=== PATIENT | female | born 1960 | race Caucasian/White ===

== ENCOUNTER 2017-09-03 02:53 | Emergency (ER) | payer BC ==
[2017-09-03] MEDS ORDERED: Meclizine 25 MG Tab PO ONE (03:46)
[2017-09-03] MEDS ORDERED: Ondansetron 4 MG Tab.DIS PO ONE (03:50)
--- NOTE | 2017-09-03 03:51 | EDM.PDOC ---
ED HPI GENERAL MEDICAL PROBLEM - General Chief Complaint: General Stated Complaint: DIZZINESS Time Seen by Provider: 09/03/17 03:46 Source of Information: Reports: Patient History Limitations: Reports: No Limitations - History of Present Illness INITIAL COMMENTS - FREE TEXT/NARRATIVE: since yesterday pt has had some episodes of vertigo that come and go. She has had slight nausea. She has not had inner ear problems in the past. She does not have a severe headache. Onset: Other ( started yesterday when she was traveling to [place]. ) Duration: Hour(s): Location: Reports: Face Associated Symptoms: Reports: Nausea/Vomiting Headache Pain Score (Numeric/FACES): 3 - Related Data Allergies Allergy/AdvReac Type Severity Reaction Status Date / Time No Known Allergies Allergy Verified 09/03/17 03:12 Home Meds: Home Meds Ergocalciferol (Vitamin D2) [Vitamin D] 400 unit PO DAILY 07/05/13 [History] Lisinopril/Hydrochlorothiazide [Lisinopril-Hctz 10-12.5 mg Tab] 1 tab PO DAILY 07/05/13 [History] Multivitamin with Minerals [Multiple Vitamin] 1 tab PO DAILY 07/05/13 [History] Simvastatin [Zocor] 10 mg PO BEDTIME 09/03/17 [History] Past Medical History HEENT History: Reports: Impaired Vision Cardiovascular History: Reports: High Cholesterol, 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 ) Respiratory: Reports: No Symptoms Cardiovascular: Reports: No Symptoms Endocrine: Reports: No Symptoms GI/Abdominal: Reports: No Symptoms, Nausea : Reports: No Symptoms Musculoskeletal: Reports: No Symptoms Skin: Reports: No Symptoms Neurological: Reports: Dizziness Psychiatric: Reports: No Symptoms ED EXAM, GENERAL - Physical Exam Exam: See Below Free Text/Narrative:: pt has the sensation that the room is moving and she is mildly nauseated. She has some tenderness by the left ear. Exam Limited By: No Limitations General Appearance: Alert, Anxious, Mild Distress, Other (pupils are equal and reactive. ) Ears: Other (pt does have fluid behind the left drum. ) Nose: Normal Inspection Throat/Mouth: Other (pt feels like she has drainage down the back of the throat. ) Head: Atraumatic Neck: Normal Inspection Respiratory/Chest: No Respiratory Distress Cardiovascular: Regular Rate, Rhythm GI/Abdominal: Soft, Non-Tender (Female) Exam: Deferred Rectal (Female) Exam: Deferred Back Exam: Normal Inspection Extremities: Normal Inspection Neurological: Alert, Oriented, Normal Cognition Course - Vital Signs Last Recorded V/S: Last Vital Signs Temp 35.9 C 09/03/17 03:22 Pulse 105 H 09/03/17 03:22 Resp 16 09/03/17 03:22 BP 177/95 H 09/03/17 03:22 Pulse Ox 98 09/03/17 03:22 - Orders/Labs/Meds Orders: Active Orders 24 hr Category Date Time Status Meclizine [Antivert] Med 09/03/17 03:46 Once 25 mg PO ONETIME ONE - Re-Assessments/Exams Free Text/Narrative Re-Assessment/Exam: 09/03/17 03:52 pt was given subling zoforan and antivert. Departure - Departure Time of Disposition: 03:53 Disposition: Home, Self-Care 01 Condition: Fair Clinical Impression: Inner ear dysfunction, Serous otitis media - Discharge Information Referrals: Rekha Kaur PA [Primary Care Provider] - Care Plan Goals: low activity, antivert 25 po tid for the next 2 days and then prn, amoxicillin 500mg tid. - My Orders Last 24 Hours: My Active Orders 09/03/17 03:46 Meclizine [Antivert] 25 mg PO ONETIME ONE - Assessment/Plan Last 24 Hours: My Active Orders 09/03/17 03:46 Meclizine [Antivert] 25 mg PO ONETIME ONE
== END 2017-09-03 04:25 | disposition home or self-care (01) ==
LOC: JP.ED 02:53
DX: H65.92 Unspecified nonsuppurative otitis media, left ear (principal); I10 Essential (primary) hypertension; E78.00 Pure hypercholesterolemia, unspecified; F32.9 Major depressive disorder, single episode, unspecified; Z79.899 Other long term (current) drug therapy
CPT/HCPCS: 99284; A9270

== ENCOUNTER 2019-03-23 00:39 | Emergency (ER) | payer BC ==
[2019-03-23] MEDS ORDERED: LORazepam 0.5 MG Tab PO ONE (01:27)
--- NOTE | 2019-03-23 01:32 | EDM.PDOC ---
ED HPI GENERAL MEDICAL PROBLEM - General Chief Complaint: General Stated Complaint: BACK PAIN,NUMB ARMS Time Seen by Provider: 03/23/19 01:27 Source of Information: Reports: Patient History Limitations: Reports: No Limitations - History of Present Illness INITIAL COMMENTS - FREE TEXT/NARRATIVE: pt arrived because each nite she is having like a panic attack and she feels like she can not breath. She took a over the counter decongestant tonight and she woke up very panicy and she was not able to breath. Onset: Other ( started several days ago. ) Duration: Hour(s): Location: Reports: Face, Chest, Other ( sinus congestion and sob. ) Associated Symptoms: Reports: Shortness of Breath below left shoulder blade Pain Score (Numeric/FACES): 3 - Related Data Allergies Allergy/AdvReac Type Severity Reaction Status Date / Time No Known Allergies Allergy Verified 03/23/19 00:59 Home Meds: Home Meds Ergocalciferol (Vitamin D2) [Vitamin D] 400 unit PO DAILY 07/05/13 [History] Lisinopril/Hydrochlorothiazide [Lisinopril-Hctz 10-12.5 mg Tab] 1 tab PO DAILY 07/05/13 [History] Multivitamin with Minerals [Multiple Vitamin] 1 tab PO DAILY 07/05/13 [History] Simvastatin [Zocor] 10 mg PO BEDTIME 09/03/17 [History] Fluticasone Propionate [Flonase] 2 spray NIRALI DAILY 03/23/19 [History] Montelukast Sodium 10 mg PO BEDTIME 03/23/19 [History] Past Medical History HEENT History: Reports: Impaired Vision Cardiovascular History: Reports: High Cholesterol, Hypertension [employer] MANAGER History: Reports: Neurological History: Reports: Other (See Below) Other Neuro History: Easton's Palsy Psychiatric History: Reports: Depression Dermatologic History: Reports: Eczema, Psoriasis - Infectious Disease History Infectious Disease History: Reports: Shingles Social & Family History - Tobacco Use Smoking Status *Q: Never Smoker Second Hand Smoke Exposure: No - Caffeine Use Caffeine Use: Reports: None - Recreational Drug Use Recreational Drug Use: No ED ROS GENERAL - Review of Systems Review Of Systems: See Below Constitutional: Reports: No Symptoms HEENT: Reports: No Symptoms Respiratory: Reports: Shortness of Breath, Other (pt gets tingly in her arms. ) Cardiovascular: Reports: Other (pain by the left shoulder blade. ) Endocrine: Reports: No Symptoms GI/Abdominal: Reports: No Symptoms : Reports: No Symptoms Musculoskeletal: Reports: No Symptoms Skin: Reports: No Symptoms ED EXAM, GENERAL - Physical Exam Exam: See Below Free Text/Narrative:: pt arrived with a history of waking up and not feeling cmfortable with the breathing. Exam Limited By: No Limitations General Appearance: Alert, Anxious, Other (pt is having episodes of sob. ) Ears: Normal TMs Nose: Normal Inspection Throat/Mouth: Normal Inspection Head: Atraumatic Neck: Normal Inspection Respiratory/Chest: No Respiratory Distress, Other ( chest does sound clear. ) Cardiovascular: Regular Rate, Rhythm GI/Abdominal: Soft, Non-Tender (Female) Exam: Deferred Rectal (Female) Exam: Deferred Back Exam: Normal Inspection Extremities: Normal Inspection Neurological: Alert, Oriented, Normal Cognition Psychiatric: Normal Affect Course - Vital Signs Last Recorded V/S: Last Vital Signs Temp 36.1 C 03/23/19 01:04 Pulse 85 03/23/19 01:05 Resp 14 03/23/19 01:05 BP 145/90 H 03/23/19 01:05 Pulse Ox 100 03/23/19 01:05 - Orders/Labs/Meds Labs: Laboratory Tests 03/23/19 03/23/19 03/23/19 Range/Units 01:30 01:30 01:30 WBC 8.1 (4.5-11.0) K/uL RBC 4.40 (3.30-5.50) M/uL Hgb 12.6 (12.0-15.0) g/dL Hct 39.2 (36.0-48.0) % MCV 89 (80-98) fL MCH 29 (27-31) pg MCHC 32 (32-36) % Plt Count 257 (150-400) K/uL Neut % (Auto) 59 (36-66) % Lymph % (Auto) 28 (24-44) % [place] % (Auto) 11 H (2-6) % Eos % (Auto) 1 L (2-4) % Baso % (Auto) 1 (0-1) % Sodium 141 (140-148) mmol/L Potassium 3.5 L (3.6-5.2) mmol/L Chloride 104 (100-108) mmol/L Carbon Dioxide 25 (21-32) mmol/L Anion Gap 15.5 H (5.0-14.0) mmol/L BUN 12 (7-18) mg/dL Creatinine 0.7 (0.6-1.0) mg/dL Est Cr Clr Drug Dosing 85.64 mL/min Estimated GFR (MDRD) > 60 (>60) Glucose 90 (74-106) mg/dL Calcium 8.6 (8.5-10.1) mg/dL Total Bilirubin 0.3 (0.2-1.0) mg/dL AST 19 (15-37) U/L ALT 25 (12-78) U/L Alkaline Phosphatase 82 (46-116) U/L NT-Pro-B Natriuret Pep (5-125) pg/mL Total Protein 7.9 (6.4-8.2) g/dL Albumin 4.1 (3.4-5.0) g/dL Globulin 3.8 H (2.3-3.5) g/dL Albumin/Globulin Ratio 1.1 L (1.2-2.2) TSH, Ultra Sensitive 4.087 H (0.358-3.740) uIU/mL Urine Color (YELLOW) Urine Appearance (CLEAR) Urine pH (5.0-8.0) Ur Specific [place] (1.008-1.030) Urine Protein (NEGATIVE) mg/dL Urine Glucose (UA) (NEGATIVE) mg/dL Urine Ketones (NEGATIVE) mg/dL Urine Occult Blood (NEGATIVE) Urine Nitrite (NEGATIVE) Urine Bilirubin (NEGATIVE) Urine Urobilinogen (0.2-1.0) EU/dL Ur Leukocyte Esterase (NEGATIVE) Urine RBC (0-5) Urine WBC (0-5) Ur Epithelial Cells Amorphous Sediment Urine Bacteria Urine Mucus 03/23/19 03/23/19 Range/Units 01:30 01:39 WBC (4.5-11.0) K/uL RBC (3.30-5.50) M/uL Hgb (12.0-15.0) g/dL Hct (36.0-48.0) % MCV (80-98) fL MCH (27-31) pg MCHC (32-36) % Plt Count (150-400) K/uL Neut % (Auto) (36-66) % Lymph % (Auto) (24-44) % [place] % (Auto) (2-6) % Eos % (Auto) (2-4) % Baso % (Auto) (0-1) % Sodium (140-148) mmol/L Potassium (3.6-5.2) mmol/L Chloride (100-108) mmol/L Carbon Dioxide (21-32) mmol/L Anion Gap (5.0-14.0) mmol/L BUN (7-18) mg/dL Creatinine (0.6-1.0) mg/dL Est Cr Clr Drug Dosing mL/min Estimated GFR (MDRD) (>60) Glucose (74-106) mg/dL Calcium (8.5-10.1) mg/dL Total Bilirubin (0.2-1.0) mg/dL AST (15-37) U/L ALT (12-78) U/L Alkaline Phosphatase (46-116) U/L NT-Pro-B Natriuret Pep 60 (5-125) pg/mL Total Protein (6.4-8.2) g/dL Albumin (3.4-5.0) g/dL Globulin (2.3-3.5) g/dL Albumin/Globulin Ratio (1.2-2.2) TSH, Ultra Sensitive (0.358-3.740) uIU/mL Urine Color Yellow (YELLOW) Urine Appearance Clear (CLEAR) Urine pH 5.5 (5.0-8.0) Ur Specific [place] <= 1.005 L (1.008-1.030) Urine Protein Negative (NEGATIVE) mg/dL Urine Glucose (UA) Negative (NEGATIVE) mg/dL Urine Ketones Negative (NEGATIVE) mg/dL Urine Occult Blood Trace-lysed H (NEGATIVE) Urine Nitrite Negative (NEGATIVE) Urine Bilirubin Negative (NEGATIVE) Urine Urobilinogen 0.2 (0.2-1.0) EU/dL Ur Leukocyte Esterase Small H (NEGATIVE) Urine RBC 0-5 (0-5) Urine WBC 0-5 (0-5) Ur Epithelial Cells Few Amorphous Sediment Few Urine Bacteria Few Urine Mucus Not seen Meds: Medications Discontinued Medications Generic Name Dose Route Start Last Admin Trade Name Freq PRN Reason Stop Dose Admin Lorazepam 0.5 mg 03/23/19 01:27 03/23/19 01:36 Ativan PO 03/23/19 01:28 0.5 mg ONETIME ONE Administration - Re-Assessments/Exams Free Text/Narrative Re-Assessment/Exam: 03/23/19 02:29 pt has a normal wbc, her chems are good. Pt has a mildly elevated tsh. Pt has had some mild congestion Departure - Departure Time of Disposition: 02:32 Disposition: Home, Self-Care 01 Condition: Fair Clinical Impression: Anxiety, Nasal congestion - Discharge Information Referrals: Rekha Kaur PA [Primary Care Provider] - Forms: ED Department Discharge Care Plan Goals: continue to use the flonase, avoid decongestants, cool mist humidifier, try to make changes at work so pt is not so stressed., ativan .5 1 tab hs to help with relaxation Recommend taking a couple of days off to get refocused. followup with Keysha Kaur. Sepsis Event Note - Evaluation Sepsis Screening Result: No Definite Risk - Focused Exam Vital Signs: Vital Signs Temp Pulse Resp BP Pulse Ox 03/23/19 01:05 85 14 145/90 H 100 03/23/19 01:04 36.1 C 84 20 156/86 H 100 Date Exam was Performed: 03/23/19 Time Exam was Performed: 02:29
--- NOTE | 2019-03-23 01:57 | CRLCR ---
INDICATION: Shortness of breath COMPARISON: None available. FINDINGS: PA and lateral views of the chest were obtained. The lungs are clear. No focal or diffuse infiltrates are present. The heart is normal in size. The mediastinum is normal in appearance. The osseous structures are normal in appearance for the patient`s age. IMPRESSION: Normal chest 2 views. Dictated by Dom Thomas MD @ Mar 23 2019 1:53AM Signed by Dr. Dom Thomas @ Mar 23 2019 1:54AM
== END 2019-03-23 03:00 | disposition home or self-care (01) ==
LOC: JP.ED 00:39
DX: F41.9 Anxiety disorder, unspecified (principal); R09.81 Nasal congestion; E78.00 Pure hypercholesterolemia, unspecified; I10 Essential (primary) hypertension; Z79.899 Other long term (current) drug therapy
CPT/HCPCS: 36415; 71046; 80053; 81001; 83880; 84443; 85025; 99285; A9270